=== PATIENT | female | born 1975 | race Caucasian/White ===

== ENCOUNTER 2017-05-11 09:07 | Emergency (ER) | payer BC ==
[2017-05-11 09:19] VITALS: BP 155/106
--- NOTE | 2017-05-11 09:19 | ED Physician Documentation ---
PD HPI LOWER EXT INJURY - Stated complaint Stated Complaint: LEFT ANKLE INJ - History obtained from History obtained from: Patient - History of Present Illness PD HPI LOW EXT INJURY LOCATION: Left, Ankle Type of injury: Fall, Twist Where injury occurred: Home Timing - onset: How many days ago (12/01) Timing - details: Abrupt onset, Still present Improved by: Rest Worsened by: Moving, Palpating Associated symptoms: Swelling. No: Weakness, Numbness Similar symptoms before: Diagnosis (ankle fracture February 2016 with cast/boot and improved though still sore with prolonged walking at times.) Review of Systems Skin: denies: Abrasion (s), Laceration (s) Musculoskeletal: denies: Neck pain, Back pain Neurologic: denies: Focal weakness, Numbness PD PAST MEDICAL HISTORY - Past Medical History Cardiovascular: None Neuro: None Endocrine/Autoimmune: None Musculoskeletal: Other (prior ankle fracture) - Present Medications Home Medications: Ambulatory Orders Medication Instructions Recorded Confirmed Alprazolam 1 mg PO BID PRN 05/11/17 05/11/17 Pantoprazole [Protonix] 40 mg PO DAILY 05/11/17 05/11/17 traMADol [Ultram] 1 - 2 tab PO TID PRN 05/11/17 05/11/17 - Allergies Allergies/Adverse Reactions: Allergies Allergy/AdvReac Type Severity Reaction Status Date / Time No Known Drug Allergies Allergy Verified 05/11/17 09:20 PD ED PE NORMAL - Vitals Vital signs reviewed: Yes - General General: Alert and oriented X 3, No acute distress, Well developed/nourished - Derm Derm: Normal color, Warm and dry - Extremities Extremities: Other (ankle with tenderness and swelling laterally at malleolus and inferior to it. Medial and Achilles not tender. Foot not tender. ) - Neuro Neuro: Alert and oriented X 3, No motor deficit, No sensory deficit Results - Vitals Vitals: Vital Signs - 24 hr 05/11/17 09:17 Temperature 36.4 C L Heart Rate 102 H Respiratory 14 Rate Blood Pressure 155/106 H O2 Saturation 100 Oxygen O2 Source Room air - Rads (name of study) ankle Radiology: Prelim report reviewed (lateral distal fibular acute fracture. Old medial bone fragment c/w prior injury. ) PD MEDICAL DECISION MAKING - ED course Complexity details: reviewed results (appears new distal fib fracture. ), considered differential, d/w patient Departure - Departure Disposition: 01 Home, Self Care Clinical Impression: Closed avulsion fracture of distal end of fibula Condition: Stable Record reviewed to determine appropriate education?: Yes Instructions: ED Fx Ankle Lateral Malleolus Follow-Up: Johnnie Adams MD [Primary Care Provider] - Comments: Walking cast boot for 4 weeks. Follow up Ortho or PMD in about 7-10 days to see how healing is progressing. Tylenol or Ibuprofen as needed for pains. Discharge Date/Time: 05/11/17 10:28
--- NOTE | 2017-05-11 09:58 | XRAY Preliminary Report ---
Exam: XR Ankle 3 View LT IMPRESSION: Left fibular tip avulsion fracture with soft tissue swelling. [facility] SITE ID: [id number]
--- NOTE | 2017-05-11 10:01 | XRAY Report ---
EXAM: LEFT ANKLE RADIOGRAPHY EXAM DATE: 05/11/2017 09:41 AM. CLINICAL HISTORY: Ankle injury Thursday, swollen/pain, limited ROM. COMPARISON: None. TECHNIQUE: 3 views. FINDINGS: Bones: Avulsion fracture fibular tip with approximately 2 mm of separation of fracture fragments. No other acute fractures. Well-corticated bony density inferior to the medial malleolus likely the resid ual of old trauma or an accessory ossicle. Plantar calcaneal spur. Joints: Normal. No effusion. No subluxations. The ankle mortise is normally aligned. Soft Tissues: Lateral soft tissue swelling. IMPRESSION: Left fibular tip avulsion fracture with soft tissue swelling. [facility] Referring Provider Line: [phone] SITE ID: [id number]
== END 2017-05-11 10:28 | disposition home or self-care (01) ==
LOC: ED 09:07
DX: S82.832A Other fracture of upper and lower end of left fibula, initial encounter for closed fracture (principal); X50.1XXA Overexertion from prolonged static or awkward postures, initial encounter; W19.XXXA Unspecified fall, initial encounter; Y92.009 Unspecified place in unspecified non-institutional (private) residence as the place of occurrence of the external cause
CPT/HCPCS: 99282; 99283

== ENCOUNTER 2023-08-09 14:29 | Outpatient (CLI) | payer SELFPAY | END 2023-08-09 14:30 | disposition EMS.NT | LOC: EMS 14:29 | DX: R55 Syncope and collapse (principal) ==